=== PATIENT | female | born 1955 | race Caucasian/White ===

== ENCOUNTER 2020-12-05 13:41 | Emergency (ER) | payer MEDICARE, OTHER ==
[~2020-12-05 13:41] MED LIST: ABILIFY5 M1 PO; AMLODIPINE BESY10 MG PO; ASPIRIN EC81 M1 PO; ASPIRIN EC81 MG PO; ATORVASTATIN CA80 MG PO; AUGMENTIN 875-1 EACH PO; AZITHROMYCIN 2250 MG PO; AZITHROMYCIN250 MG PO; BUPROPION XL300 MG PO; CELEXA20 MG PO; CITALOPRAM 40MG40 MG PO; CLARITIN10 MG PO; CLONAZEPAM 1MG T1 MG PO; HYDROCODON-ACE1 EAC2 PO; JANUVIA50 MG PO; LASIX20 MG PO; LEVOTHYROXINE50 MCG PO; LIPITOR40 MG PO; LISINOPRIL40 MG PO; LOPRESSOR25 MG PO; MUCINEX 600MG600 MG PO; NOVOLOG FL100 UNIT/1 SC; NOVOLOG MI100 UNIT/3 SC; OMEPRAZOLE 20MG20 MG PO; ONDANSETRON ODT4 MG PO/SL; PRILOSEC20 MG PO; PRINIVIL20 MG PO; PROVENTIL HFA6.7 GM INH; SKELAXIN800 MG PO; SYNTHROID50 MCG PO; TRESIBA FL200 UNIT/1 SC; VITAMIN D3 COM1 EACH PO; ZOFRAN8 MG PO
[2020-12-05 15:23] LABS: BASOPHIL 0.8 % (0-2); EOSINOPHIL 9.3 % (0-5); HCT 30.5 % (37.0-47.0); HGB 9.9 g/dl (12.5-16.0); LYMPHOCYTE 25.4 % (15-48); MCH 27.9 pg (25.0-31.0); MCHC 32.5 g/dL (32.0-36.0); MCV 85.9 fL (78.0-100.0); MONOCYTE 8.8 % (0-12); MPV 11.5 fL (6.0-9.5); NEUTROPHIL 55.5 % (41-80); NRBC 0; PLT 281 K/uL (150-400); RBC 3.55 M/uL (4.20-5.40); RDW 15.3 % (11.5-14.0); WBC 9.1 K/uL (4.0-10.5)
[2020-12-05 15:27] LABS: INR 1.15 (0.9-1.2)
[2020-12-05 15:28] LABS: PTT 31.6 SECONDS (22.2-34.7)
[2020-12-05 15:30] LABS: ALBUMIN 2.3 g/dL (3.4-5.0); BILIRUBIN - TOTAL 0.3 mg/dL (0.2-1.0); BUN/CREAT RATIO (CALC) 13.3 RATIO; CREATININE 3.32 mg/dL (0.51-0.95); GLOBULIN (CALCULATION) 4.6 g/dL; TOTAL PROTEIN 6.9 g/dL (6.4-8.2)
[2021-04-10] MEDS ORDERED: KEFLEX250 MG PO
== END 2020-12-05 17:21 | disposition home or self-care (01) ==
LOC: FER 13:41
PROVIDERS: Emergency Medicine
DX: L76.22 Postprocedural hemorrhage of skin and subcutaneous tissue following other procedure (principal); F17.210 Nicotine dependence, cigarettes, uncomplicated; Z88.2 Allergy status to sulfonamides; Z95.828 Presence of other vascular implants and grafts
CPT/HCPCS: 36415; 71250; 80053; 85025; 85610; 85730; J1170; J2405

== ENCOUNTER 2021-01-05 05:42 | Emergency (ER) | payer MEDICARE, OTHER ==
[2021-01-05 07:28] LABS: BUN/CREAT RATIO (CALC) 12.3 RATIO; CREATININE 3.97 mg/dL (0.51-0.95); POTASSIUM 4.1 mmol/L (3.5-5.1)
[2021-01-05 07:29] LABS: BASOPHIL 0.2 % (0-2); EOSINOPHIL 0.1 % (0-5); HCT 33.5 % (37.0-47.0); HGB 10.9 g/dl (12.5-16.0); LYMPHOCYTE 5.3 % (15-48); MCH 28.7 pg (25.0-31.0); MCHC 32.5 g/dL (32.0-36.0); MCV 88.2 fL (78.0-100.0); MONOCYTE 6.3 % (0-12); MPV 12.1 fL (6.0-9.5); NEUTROPHIL 87.4 % (41-80); NRBC 0; PLT 218 K/uL (150-400); RDW 15.1 % (11.5-14.0); WBC 19.9 K/uL (4.0-10.5)
[2021-01-05] MEDS ORDERED: ONDANSETRON ODT4 MG PO (08:31)
== END 2021-01-05 09:21 | disposition home or self-care (01) ==
LOC: FER 05:42
PROVIDERS: Emergency Medicine
DX: G89.18 Other acute postprocedural pain (principal); M79.622 Pain in left upper arm; I12.9 Hypertensive chronic kidney disease with stage 1 through stage 4 chronic kidney disease, or unspecified chronic kidney disease; E11.22 Type 2 diabetes mellitus with diabetic chronic kidney disease; N18.9 Chronic kidney disease, unspecified; F17.210 Nicotine dependence, cigarettes, uncomplicated; Z99.2 Dependence on renal dialysis; Z88.1 Allergy status to other antibiotic agents; Z88.2 Allergy status to sulfonamides
CPT/HCPCS: 36415; 80048; 85025; J1170; J2405

== ENCOUNTER 2021-01-08 00:34 | Emergency (ER) | payer MEDICARE, OTHER ==
[~2021-01-08 00:34] MED LIST changes: +ONDANSETRON ODT4 MG PO
[2021-01-08 01:00] LABS: BASOPHIL 0.4 % (0-2); EOSINOPHIL 0.1 % (0-5); HCT 29.4 % (37.0-47.0); HGB 9.8 g/dl (12.5-16.0); LYMPHOCYTE 3.1 % (15-48); MCH 28.7 pg (25.0-31.0); MCHC 33.3 g/dL (32.0-36.0); MONOCYTE 3.9 % (0-12); NRBC 0; PLT 240 K/uL (150-400); RBC 3.42 M/uL (4.20-5.40); RDW 14.5 % (11.5-14.0)
[2021-01-08 01:01] LABS: NEUTROPHIL 87.6 % (41-80)
[2021-01-08 01:40] LABS: ALBUMIN 1.9 g/dL (3.4-5.0); BILIRUBIN - TOTAL 1.9 mg/dL (0.2-1.0); BUN/CREAT RATIO (CALC) 14.4 RATIO; CREATININE 4.04 mg/dL (0.51-0.95); GLOBULIN (CALCULATION) 4.2 g/dL; POTASSIUM 4.8 mmol/L (3.5-5.1); TOTAL PROTEIN 6.1 g/dL (6.4-8.2)
[2021-01-08 04:23] LABS: BILIRUBIN NEGATIVE (NEGATIVE); BLOOD 3+ Ery/uL (NEGATIVE); CLARITY HAZY (CLEAR); COLOR YELLOW (YELLOW); GLUCOSE (U) 3+ mg/dL (NORMAL); LEUKOCYTES NEGATIVE Leu/uL (NEGATIVE); NITRITE NEGATIVE (NEGATIVE); PROTEIN 3+ mg/dL (NEGATIVE); SPECIFIC GRAVITY 1.025 (1.001-1.030); UROBILINOGEN 0.2 mg/dL (0.2-1.0)
[2021-01-08 04:46] LABS: BACTERIA 4+; URINARY WBC TNTC
== END 2021-01-08 06:00 | disposition home or self-care (01) ==
LOC: FER 00:34
PROVIDERS: Emergency Medicine
DX: E87.2 Acidosis (principal); I99.8 Other disorder of circulatory system; E87.1 Hypo-osmolality and hyponatremia; E11.22 Type 2 diabetes mellitus with diabetic chronic kidney disease; I12.0 Hypertensive chronic kidney disease with stage 5 chronic kidney disease or end stage renal disease; N18.6 End stage renal disease; Z88.2 Allergy status to sulfonamides; Z88.1 Allergy status to other antibiotic agents; Z79.899 Other long term (current) drug therapy; Z79.84 Long term (current) use of oral hypoglycemic drugs
CPT/HCPCS: 36415; 36600; 71045; 80053; 81001; 82150; 82550; 82803; 83605; 83690; 84484; 85025; 93005; J1644; J2270; J2405; J2543; J7030

== ENCOUNTER 2021-03-19 10:48 | Emergency (ER) | payer MEDICARE, OTHER ==
[2021-03-19 11:51] LABS: BASOPHIL 0.9 % (0-2); HCT 32.2 % (37.0-47.0); HGB 10.4 g/dl (12.5-16.0); MCH 28.8 pg (25.0-31.0); MCHC 32.3 g/dL (32.0-36.0); MCV 89.2 fL (78.0-100.0); MONOCYTE 7.4 % (0-12); NEUTROPHIL 60.2 % (41-80); NRBC 0; PLT 215 K/uL (150-400); RBC 3.61 M/uL (4.20-5.40); RDW 14.1 % (11.5-14.0); WBC 6.4 K/uL (4.0-10.5)
[2021-03-19 12:20] LABS: ALBUMIN 3.1 g/dL (3.4-5.0); BILIRUBIN - TOTAL 0.4 mg/dL (0.2-1.0); BUN/CREAT RATIO (CALC) 9.7 RATIO; CREATININE 2.38 mg/dL (0.51-0.95); GLOBULIN (CALCULATION) 4.6 g/dL; POTASSIUM 4.9 mmol/L (3.5-5.1); TOTAL PROTEIN 7.7 g/dL (6.4-8.2)
[2021-04-10] MEDS ORDERED: KEFLEX250 MG PO
== END 2021-03-19 14:26 | disposition home or self-care (01) ==
LOC: FER 10:48
PROVIDERS: Internal Medicine
DX: D64.9 Anemia, unspecified (principal); R55 Syncope and collapse; R51.9 Headache, unspecified; M25.512 Pain in left shoulder; E11.65 Type 2 diabetes mellitus with hyperglycemia; E11.22 Type 2 diabetes mellitus with diabetic chronic kidney disease; N18.6 End stage renal disease; Z99.2 Dependence on renal dialysis; Z82.49 Family history of ischemic heart disease and other diseases of the circulatory system; Z83.3 Family history of diabetes mellitus
CPT/HCPCS: 36415; 70450; 73030; 80053; 84443; 84484; 85025; 93005; J7050

== ENCOUNTER 2021-04-10 22:18 | Emergency (ER) | payer MEDICARE, OTHER ==
[~2021-04-10 22:18] MED LIST changes: +KEFLEX250 MG PO
== END 2021-04-11 00:23 | disposition home or self-care (01) ==
LOC: FER 22:18
DX: T81.40XA Infection following a procedure, unspecified, initial encounter (principal); I12.0 Hypertensive chronic kidney disease with stage 5 chronic kidney disease or end stage renal disease; E11.22 Type 2 diabetes mellitus with diabetic chronic kidney disease; N18.6 End stage renal disease; Z99.2 Dependence on renal dialysis; Z89.612 Acquired absence of left leg above knee; Z88.2 Allergy status to sulfonamides; Y83.9 Surgical procedure, unspecified as the cause of abnormal reaction of the patient, or of later complication, without mention of misadventure at the time of the procedure
CPT/HCPCS: 99283

== ENCOUNTER 2021-05-09 13:14 | Emergency (ER) | payer MEDICARE, OTHER ==
[~2021-05-09] VITALS: Ht 175.3 cm; Wt 148.8 kg
[2021-05-09] MEDS ORDERED: NORCO 5-325 TA1 EACH PO (15:39)
== END 2021-05-09 16:13 | disposition home or self-care (01) ==
LOC: FER 13:14
DX: S93.401A Sprain of unspecified ligament of right ankle, initial encounter (principal); S40.022A Contusion of left upper arm, initial encounter; I12.9 Hypertensive chronic kidney disease with stage 1 through stage 4 chronic kidney disease, or unspecified chronic kidney disease; E11.22 Type 2 diabetes mellitus with diabetic chronic kidney disease; N18.6 End stage renal disease; Z88.2 Allergy status to sulfonamides; Z99.2 Dependence on renal dialysis; W01.0XXA Fall on same level from slipping, tripping and stumbling without subsequent striking against object, initial encounter; Y92.009 Unspecified place in unspecified non-institutional (private) residence as the place of occurrence of the external cause
CPT/HCPCS: 73030; 73610

== ENCOUNTER 2021-06-03 20:55 | Emergency (ER) | payer MEDICARE, OTHER ==
[~2021-06-03 20:55] MED LIST changes: +NORCO 5-325 TA1 EACH PO
[2021-06-03 21:59] LABS: BASOPHIL 0.8 % (0-2); EOSINOPHIL 8.4 % (0-5); HCT 26.9 % (37.0-47.0); HGB 8.3 g/dl (12.5-16.0); MCH 26.8 pg (25.0-31.0); MCHC 30.9 g/dL (32.0-36.0); MCV 86.8 fL (78.0-100.0); MONOCYTE 8.7 % (0-12); MPV 10.4 fL (6.0-9.5); NEUTROPHIL 50.8 % (41-80); NRBC 0; PLT 292 K/uL (150-400); RDW 17.6 % (11.5-14.0); WBC 7.4 K/uL (4.0-10.5)
[2021-06-03 22:14] LABS: INR 1.11 (0.9-1.2); PROTHROMBIN TIME 13.7 SECONDS (11.8-13.4); PTT 29.3 SECONDS (24.4-34.7)
[2021-06-03 22:15] LABS: D-DIMER 3.13 ug/mLFEU (0.00-0.41)
[2021-06-03 22:32] LABS: ALBUMIN 2.6 g/dL (3.4-5.0); ALKALINE PHOSHATASE 60 U/L (46-116); ALT 17 U/L (14-59); AST 12 U/L (15-37); BILIRUBIN - TOTAL 0.3 mg/dL (0.2-1.0); BUN 55 mg/dL (7-18); BUN/CREAT RATIO (CALC) 10.5 RATIO; CHLORIDE 101 mmol/L (98-107); CO2 (BICARBONATE) 28 mmol/L (21-32); CREATININE 5.23 mg/dL (0.51-0.95); GLOBULIN (CALCULATION) 3.8 g/dL; GLUCOSE 163 mg/dL (74-106); POTASSIUM 4.5 mmol/L (3.5-5.1); TOTAL PROTEIN 6.4 g/dL (6.4-8.2)
[2021-06-03 22:36] LABS: C-REACTIVE PROTEIN < 0.20 mg/dL (<=0.90)
[2021-06-04] MEDS ORDERED: VIBRAMYCIN100 MG PO (00:47)
== END 2021-06-04 01:15 | disposition home or self-care (01) ==
LOC: FER 20:55
PROVIDERS: Emergency Medicine Emergency Medical Services
DX: T82.838A Hemorrhage due to vascular prosthetic devices, implants and grafts, initial encounter (principal); E11.22 Type 2 diabetes mellitus with diabetic chronic kidney disease; I12.0 Hypertensive chronic kidney disease with stage 5 chronic kidney disease or end stage renal disease; N18.6 End stage renal disease; Z88.1 Allergy status to other antibiotic agents; Z99.2 Dependence on renal dialysis
CPT/HCPCS: 36415; 80053; 83605; 84484; 85025; 85379; 85610; 85730; 86140; 87040; 93971; J2543

== ENCOUNTER 2021-06-15 10:29 | Emergency (ER) | payer MEDICARE, OTHER ==
[~2021-06-15 10:29] MED LIST changes: +VIBRAMYCIN100 MG PO
[2021-06-15 11:50] LABS: BASOPHIL 0.5 % (0-2); EOSINOPHIL 1.9 % (0-5); HCT 36.6 % (37.0-47.0); HGB 10.9 g/dl (12.5-16.0); LYMPHOCYTE 13.7 % (15-48); MCH 27.2 pg (25.0-31.0); MCHC 29.8 g/dL (32.0-36.0); MONOCYTE 10.3 % (0-12); MPV 11.4 fL (6.0-9.5); NEUTROPHIL 73.3 % (41-80); NRBC 0; PLT 189 K/uL (150-400); RBC 4.01 M/uL (4.20-5.40); RDW 19.4 % (11.5-14.0); WBC 9.5 K/uL (4.0-10.5)
[2021-06-15 11:52] LABS: MCV 91.3 fL (78.0-100.0)
== END 2021-06-15 12:32 | disposition home or self-care (01) ==
LOC: FER 10:29
PROVIDERS: Emergency Medicine
DX: E11.649 Type 2 diabetes mellitus with hypoglycemia without coma (principal); E11.22 Type 2 diabetes mellitus with diabetic chronic kidney disease; I12.0 Hypertensive chronic kidney disease with stage 5 chronic kidney disease or end stage renal disease; N18.6 End stage renal disease; Z99.2 Dependence on renal dialysis; Z88.2 Allergy status to sulfonamides; Z88.1 Allergy status to other antibiotic agents; Z87.891 Personal history of nicotine dependence; Z20.822 Contact with and (suspected) exposure to COVID-19
CPT/HCPCS: 36415; 71045; 85025; 93005; U0002

== ENCOUNTER 2021-06-20 05:52 | Emergency (ER) | payer MEDICARE, OTHER ==
[2021-06-20 08:06] LABS: BASOPHIL 0.3 % (0-2); EOSINOPHIL 0 % (0-5); HCT 27.3 % (37.0-47.0); HGB 8.9 g/dl (12.5-16.0); LYMPHOCYTE 3.4 % (15-48); MCH 26.5 pg (25.0-31.0); MCHC 32.6 g/dL (32.0-36.0); MONOCYTE 6.5 % (0-12); MPV 12.4 fL (6.0-9.5); NEUTROPHIL 89.1 % (41-80); NRBC 0; PLT 152 K/uL (150-400); RBC 3.36 M/uL (4.20-5.40); RDW 18.5 % (11.5-14.0); WBC 9.5 K/uL (4.0-10.5)
[2021-06-20 08:10] LABS: MCV 81.3 fL (78.0-100.0)
[2021-06-20 08:19] LABS: ALBUMIN 2.2 g/dL (3.4-5.0); BILIRUBIN - TOTAL 0.4 mg/dL (0.2-1.0); BUN/CREAT RATIO (CALC) 11.8 RATIO; CREATININE 6.63 mg/dL (0.51-0.95); GLOBULIN (CALCULATION) 3.9 g/dL; POTASSIUM 4.9 mmol/L (3.5-5.1); TOTAL PROTEIN 6.1 g/dL (6.4-8.2)
[2021-06-20 08:37] LABS: LACTIC ACID 0.6 mmol/L (0.4-1.9)
== END 2021-06-20 18:35 | disposition other institution (70) ==
LOC: FER 05:52
PROVIDERS: Internal Medicine
DX: T82.7XXA Infection and inflammatory reaction due to other cardiac and vascular devices, implants and grafts, initial encounter (principal); E87.1 Hypo-osmolality and hyponatremia; E11.65 Type 2 diabetes mellitus with hyperglycemia; I12.0 Hypertensive chronic kidney disease with stage 5 chronic kidney disease or end stage renal disease; E11.22 Type 2 diabetes mellitus with diabetic chronic kidney disease; N18.6 End stage renal disease; Z99.2 Dependence on renal dialysis; Z20.822 Contact with and (suspected) exposure to COVID-19
CPT/HCPCS: 36415; 71045; 80053; 83605; 84145; 85025; 87040; 87070; 87077; 87186; 87205; J2543; J3370; J7030; J7050; U0002

== ENCOUNTER 2021-07-09 16:51 | Emergency (ER) | payer MEDICARE, OTHER ==
[2021-07-09 17:28] LABS: BASOPHIL 0.6 % (0-2); EOSINOPHIL 1.9 % (0-5); HCT 19.2 % (37.0-47.0); LYMPHOCYTE 24.7 % (15-48); MCH 27.1 pg (25.0-31.0); MCHC 30.2 g/dL (32.0-36.0); MCV 89.7 fL (78.0-100.0); MONOCYTE 8.5 % (0-12); MPV 10.3 fL (6.0-9.5); NEUTROPHIL 63.6 % (41-80); NRBC 0; PLT 232 K/uL (150-400); RBC 2.14 M/uL (4.20-5.40); RDW 18.6 % (11.5-14.0); WBC 9.7 K/uL (4.0-10.5)
[2021-07-09 17:33] LABS: HGB 5.8 g/dl (12.5-16.0)
[2021-07-09 17:52] LABS: ALBUMIN 1.6 g/dL (3.4-5.0); BILIRUBIN - TOTAL 0.3 mg/dL (0.2-1.0); BUN/CREAT RATIO (CALC) 4.3 RATIO; CREATININE 2.53 mg/dL (0.51-0.95); GLOBULIN (CALCULATION) 4.4 g/dL; POTASSIUM 3.7 mmol/L (3.5-5.1)
[2021-07-09 18:05] LABS: CORONAVIRUS 2019 SARS-COV-2 NEGATIVE (NEGATIVE); INFLUENZA A NAA NEGATIVE (NEGATIVE)
[2021-07-09 23:26] LABS: BASOPHIL 0.5 % (0-2); EOSINOPHIL 0.2 % (0-5); HCT 20.3 % (37.0-47.0); LYMPHOCYTE 16.5 % (15-48); MCH 26.7 pg (25.0-31.0); MCHC 31.5 g/dL (32.0-36.0); MONOCYTE 4.8 % (0-12); NEUTROPHIL 77.6 % (41-80); NRBC 0; PLT 207 K/uL (150-400); RDW 17.5 % (11.5-14.0)
[2021-07-09 23:28] LABS: HGB 6.4 g/dl (12.5-16.0); MCV 84.6 fL (78.0-100.0)
[2021-07-10 04:18] LABS: HCT 21.6 % (37.0-47.0)
== END 2021-07-10 08:30 | disposition other institution (70) ==
LOC: FER 16:51
PROVIDERS: Emergency Medicine; Emergency Medicine Emergency Medical Services
DX: T81.30XA Disruption of wound, unspecified, initial encounter (principal); D50.0 Iron deficiency anemia secondary to blood loss (chronic); N18.6 End stage renal disease; R56.9 Unspecified convulsions; Z99.2 Dependence on renal dialysis; Z20.822 Contact with and (suspected) exposure to COVID-19
CPT/HCPCS: 36415; 36430; 71045; 80053; 85014; 85018; 85025; 86850; 86900; 86901; 86922; 87040; 96374; J1953; P9016; U0002

== ENCOUNTER 2021-10-29 09:08 | Emergency (ER) | payer OTHER ==
[~2021-10-29] VITALS: Ht 167.6 cm; Wt 113.6 kg
[2021-10-29 09:37] LABS: BASOPHIL 0.3 % (0-2); EOSINOPHIL 2.7 % (0-5); HCT 37.8 % (37.0-47.0); LYMPHOCYTE 42.2 % (15-48); MCH 26.3 pg (25.0-31.0); MCHC 31.7 g/dL (32.0-36.0); MCV 82.9 fL (78.0-100.0); MONOCYTE 6.1 % (0-12); MPV 10.5 fL (6.0-9.5); NEUTROPHIL 48.1 % (41-80); NRBC 0; PLT 213 K/uL (150-400); RBC 4.56 M/uL (4.20-5.40); WBC 11.2 K/uL (4.0-10.5)
[2021-10-29 09:51] LABS: BILIRUBIN - TOTAL 0.2 mg/dL (0.2-1.0); BUN/CREAT RATIO (CALC) 13.3 RATIO; CREATININE 2.64 mg/dL (0.51-0.95); GLOBULIN (CALCULATION) 4.9 g/dL; MAGNESIUM 2.4 mg/dL (1.8-2.4); POTASSIUM 4.6 mmol/L (3.5-5.1); TOTAL PROTEIN 7.9 g/dL (6.4-8.2)
== END 2021-10-29 19:54 | disposition other institution (70) ==
LOC: FER 09:08
PROVIDERS: Emergency Medicine
DX: R40.20 Unspecified coma (principal); J96.00 Acute respiratory failure, unspecified whether with hypoxia or hypercapnia; N18.6 End stage renal disease; J44.9 Chronic obstructive pulmonary disease, unspecified; Z99.2 Dependence on renal dialysis; Z88.1 Allergy status to other antibiotic agents; Z20.822 Contact with and (suspected) exposure to COVID-19
CPT/HCPCS: 36415; 36600; 70450; 71045; 74018; 80053; 82140; 82803; 83735; 84100; 84145; 85025; 93005; 96374; 96375; 96376; C9113; J1953; J2250; J2704; J3010; U0002

== ENCOUNTER 2022-01-07 20:37 | Emergency (ER) | payer MEDICARE, OTHER ==
[2022-01-07 21:05] LABS: BASOPHIL 0.7 % (0-2); EOSINOPHIL 5.6 % (0-7); HCT 35.1 % (37.0-47.0); HGB 11.5 g/dl (12.5-16.0); LYMPHOCYTE 28.6 % (15-48); MCHC 32.8 g/dL (32.0-36.0); MCV 88.6 fL (78.0-100.0); MONOCYTE 7.2 % (0-12); NEUTROPHIL 57.6 % (41-80); NRBC 0; PLT 227 K/uL (150-400); RBC 3.96 M/uL (4.20-5.40); RDW 16.6 % (11.5-14.0); WBC 7.5 K/uL (4.0-10.5)
[2022-01-07 21:11] LABS: INR 1.07 (0.9-1.2); PROTHROMBIN TIME 13.3 SECONDS (11.8-13.4)
[2022-01-07 21:12] LABS: PTT 29.5 SECONDS (24.4-34.7)
[2022-01-07 21:22] LABS: ALBUMIN 2.9 g/dL (3.4-5.0); BILIRUBIN - TOTAL 0.4 mg/dL (0.2-1.0); BUN/CREAT RATIO (CALC) 9.5 RATIO; CREATININE 3.68 mg/dL (0.51-0.95); GLOBULIN (CALCULATION) 4.9 g/dL; POTASSIUM 5.4 mmol/L (3.5-5.1); TOTAL PROTEIN 7.8 g/dL (6.4-8.2)
[2022-01-08 01:42] LABS: LACTIC ACID 2.2 mmol/L (0.4-1.9)
[2022-01-08 06:43] LABS: BUN/CREAT RATIO (CALC) 9.8 RATIO; CREATININE 4.4 mg/dL (0.51-0.95); POTASSIUM 4.8 mmol/L (3.5-5.1)
== END 2022-01-08 08:49 | disposition home or self-care (01) ==
LOC: FER 20:37
PROVIDERS: Emergency Medicine
DX: R07.89 Other chest pain (principal); E11.22 Type 2 diabetes mellitus with diabetic chronic kidney disease; I12.0 Hypertensive chronic kidney disease with stage 5 chronic kidney disease or end stage renal disease; N18.6 End stage renal disease; J44.9 Chronic obstructive pulmonary disease, unspecified; F17.200 Nicotine dependence, unspecified, uncomplicated; Z99.2 Dependence on renal dialysis
CPT/HCPCS: 36415; 71045; 71260; 80048; 80053; 83605; 84484; 85025; 85379; 85610; 85730; 87040; 93005; J0610; J0692; J1170; Q9967